=== PATIENT | male | born 1960 | race Caucasian/White ===

== ENCOUNTER 2018-11-04 17:58 | Emergency (ER) | payer MEDICAID ==
[~2018-11-04] VITALS: Ht 175.3 cm; Wt 79.9 kg
[2018-11-04 18:15] VITALS: BP 107/70
[2018-11-04] MEDS ORDERED: ONDANSETRON 2MG/ML, 2ML IVPush ONE (18:30)
[2018-11-04] MEDS ORDERED: SODIUM CHLORIDE FLUSH 10ML SYR IVF ONE (18:30)
[2018-11-04] MEDS ORDERED: HYDROmorphone 1 MG/ML, 1ML INJ IV ONE (18:30)
--- NOTE | 2018-11-04 18:51 | NUR ---
PT HAS LARGE ABSCESS TO R BUTTOCK, DRAINING PURULENT FLUID. SURROUNDING AREA RED & PAINFUL.
[2018-11-04 18:57] LABS: PH, VENOUS 7.516 pH (7.320-7.420)
[2018-11-04 18:59] LABS: MEAN CORPUSCULAR HEMOGLOBIN 29.4 pg (27.5-34.5); MEAN CORPUSCULAR HGB CONC 33.7 g/dL (33.2-36.2); MEAN CORPUSCULAR VOLUME 87.1 fL (81-97); MEAN PLATELET VOLUME 7.7 fL (7.4-10.4); PLATELET COUNT 468 x10^3/uL (130-400); RED BLOOD COUNT 4.85 x10^6/uL (4.38-5.82)
[2018-11-04] MEDS ORDERED: SODIUM CHLORIDE 0.9% 1,000ML IVBOLUS ONE (19:00)
[2018-11-04] MEDS ORDERED: CLINDAMYCIN PMX 900MG/50ML 50 ML IVPB ONE (19:00)
[2018-11-04 19:08] LABS: ALANINE AMINOTRANSFERASE 16 U/L (12-78); ALBUMIN 0.8 g/dL (3.4-5.0); ANION GAP 9 mmol/L (5-15); CALCIUM 7.9 mg/dL (8.5-10.1); CHLORIDE 97 mmol/L (98-107); CREATININE 0.96 mg/dL (0.7-1.3)
[2018-11-04 19:11] LABS: ALKALINE PHOSPHATASE 151 U/L (45-117); BILIRUBIN,TOTAL 0.2 mg/dL (0.2-1.0); TOTAL PROTEIN 5.8 g/dL (6.4-8.2)
[2018-11-04] MEDS ORDERED: HYDROmorphone 2 MG/ML, 1ML ONE (19:12)
[2018-11-04] MEDS ORDERED: CLINDAMYCIN PMX 900MG/50ML 50 ML ONE (19:12)
[2018-11-04] MEDS ORDERED: ONDANSETRON 2MG/ML, 2ML ONE (19:12)
[2018-11-04 19:21] LABS: ACETONE, SERUM Small (20mg/dL) mg/dL (Negative)
[2018-11-04 19:27] LABS: BASOPHILS # (AUTO) 0.04 x10^3/uL (0-0.1); BASOPHILS % (AUTO) 0 % (0-1); EOSINOPHILS # (AUTO) 0.04 x10^3/uL (0-0.4); EOSINOPHILS % (AUTO) 0 % (1-7); LYMPHOCYTES # (AUTO) 0.89 x10^3/uL (1-3.4); LYMPHOCYTES % (AUTO) 4 % (22-44); MD SCAN; MONOCYTES # (AUTO) 0.31 x10^3/uL (0.2-0.8); MONOCYTES % (AUTO) 2 % (2-9); NEUTROPHILS # (AUTO) 19.44 x10^3/uL (1.8-6.8); NEUTROPHILS % (AUTO) 94 % (42-75)
--- NOTE | 2018-11-04 19:30 | NUR ---
PT MEDICATED PER ORDERS. UNDERSTANDS POC. ON MONITOR. REPORTED TO RAFFI RICKS.
[2018-11-04] MEDS ORDERED: LIDOCAINE-MPF 1%, 5ML ONE (19:35)
[2018-11-04] MEDS ORDERED: LIDOCAINE-MPF 1%, 5ML INFIL ONE (20:00)
== END 2018-11-04 20:34 | disposition home or self-care (01) ==
LOC: ED 20:28
DX: L05.01 Pilonidal cyst with abscess (principal); E11.9 Type 2 diabetes mellitus without complications; Z79.84 Long term (current) use of oral hypoglycemic drugs
CPT/HCPCS: 36415; 80053; 82010; 82803; 83605; 84145; 85025; 87040; 96365; 96375; 99283; J1170; J2405; J7030

== ENCOUNTER 2018-11-06 10:16 | Emergency (ER) | payer MEDICAID ==
[~2018-11-06] VITALS: Ht 175.3 cm; Wt 81.2 kg
[2018-11-06 10:18] VITALS: BP 122/50
--- NOTE | 2018-11-06 11:02 | NUR ---
PA at bedside to clean wound. Pt in prone position on bed. Denies any needs at this time.
== END 2018-11-06 11:31 | disposition home or self-care (01) ==
LOC: ED 11:05
DX: Z48.01 Encounter for change or removal of surgical wound dressing (principal)
CPT/HCPCS: 99283

== ENCOUNTER 2018-11-26 12:17 | Inpatient (IN) | payer MEDICAID ==
[~2018-11-26] VITALS: Ht 175.3 cm; Wt 82.0 kg
[2018-11-26 19:04] VITALS: BP 165/92
== END 2018-11-27 01:10 | disposition left against medical advice (07) | DRG 383 ==
LOC: ED 16:47 → 4NOR 17:28 → EDIP 18:00 → 4NOR 18:15
PROVIDERS: ADMIT Internal Medicine; ATTEND Internal Medicine
PROC: 0H98XZZ Drainage of Buttock Skin, External Approach (ICD-10-PCS; principal; 2018-11-26)
DX: L05.01 Pilonidal cyst with abscess (principal); E11.65 Type 2 diabetes mellitus with hyperglycemia; E87.6 Hypokalemia; E88.09 Other disorders of plasma-protein metabolism, not elsewhere classified; F17.210 Nicotine dependence, cigarettes, uncomplicated; K40.90 Unilateral inguinal hernia, without obstruction or gangrene, not specified as recurrent; D64.9 Anemia, unspecified; Z83.3 Family history of diabetes mellitus; Z91.19 Patient's noncompliance with other medical treatment and regimen
CPT/HCPCS: 36415; 72193; 80053; 82010; 82962; 83036; 83605; 85025; 85610; 85651; 85730; 86140; 87040; 87070; 87147; 87205; 96374; 96375; 99285; G0378; J2405; J2543; J3370; Q9967; J1815; J2270; J7030; J7050